=== PATIENT | male | born 1945 | race Caucasian/White ===

== ENCOUNTER → 2016-12-01 | Outpatient (CLI) | payer MEDICARE, MEDICAID | END | disposition home or self-care (01) | LOC: CFH 08:51 | DX: I51.7 Cardiomegaly (principal); J98.11 Atelectasis; K22.9 Disease of esophagus, unspecified; M89.9 Disorder of bone, unspecified | CPT/HCPCS: 71250; 74220 ==

== ENCOUNTER 2017-10-21 10:14 | Day surgery (SDC) | payer MEDICARE, MEDICAID ==
[~2017-10-21] VITALS: Ht 172.7 cm; Wt 95.8 kg
[2017-10-21] MEDS ORDERED: ALPR HOMEMEDPR (10:54)
[2017-10-21] MEDS ORDERED: DIAZ5TAB PO (10:54)
[2017-10-21] MEDS ORDERED: SILD100T PO (10:54)
[2017-10-21] MEDS ORDERED: [UNRECOGNIZED DRUG - CODE] PO (10:54)
[2017-10-21] MEDS ORDERED: TRAM50TA2 PO (10:54)
[2017-10-21 11:03] VITALS: BP 174/100
[2017-10-21 11:28] LABS: MICROSCOPIC NOT IND
[2017-10-21 11:33] LABS: CULTURE INDICATED? NO
[2017-10-21 11:42] LABS: BASOPHILS # (AUTO) 0.03 x10^3/uL (0-0.1); BASOPHILS % (AUTO) 1 % (0-1); EOSINOPHILS # (AUTO) 0.16 x10^3/uL (0-0.4); EOSINOPHILS % (AUTO) 2 % (1-7); LYMPHOCYTES # (AUTO) 2.04 x10^3/uL (1-3.4); LYMPHOCYTES % (AUTO) 29 % (22-44); MD NO; MEAN CORPUSCULAR HEMOGLOBIN 32.6 pg (27.5-34.5); MEAN CORPUSCULAR HGB CONC 34.6 g/dL (33.2-36.2); MEAN CORPUSCULAR VOLUME 94.1 fL (81-97); MEAN PLATELET VOLUME 7.9 fL (7.4-10.4); MONOCYTES # (AUTO) 0.59 x10^3/uL (0.2-0.8); MONOCYTES % (AUTO) 8 % (2-9); NEUTROPHILS # (AUTO) 4.28 x10^3/uL (1.8-6.8); NEUTROPHILS % (AUTO) 60 % (42-75); PLATELET COUNT 172 x10^3/uL (130-400); RED BLOOD COUNT 5.14 x10^6/uL (4.38-5.82); RED CELL DISTRIBUTION WIDTH 12.8 % (9.4-14.8)
[2017-10-21 11:54] LABS: ANION GAP 7 mmol/L (5-15); CALCIUM 8.5 mg/dL (8.5-10.1); CHLORIDE 110 mmol/L (98-107)
[2017-10-21] MEDS ORDERED: ONDANSETRON ODT 8 MG PO ONE (12:00)
[2017-10-21] MEDS ORDERED: GABAPENTIN 300 MG CAPSULE PO ONE (12:00)
[2017-10-21] MEDS ORDERED: ACETAMINOPHEN 500 MG TABLET PO ONE (12:00)
[2017-10-21] MEDS ORDERED: OxyconTIN ER 10 MG TAB.ER PO ONE (12:00)
[2017-10-21] MEDS ORDERED: LACTATED RINGERS 1,000 ML IV SCH (12:13)
[2017-10-21] MEDS ORDERED: FENTANYL PF 250 MCG/5ML ONE (12:37)
[2017-10-21] MEDS ORDERED: MIDAZOLAM 1 MG/ML, 2ML ONE (12:37)
[2017-10-21] MEDS ORDERED: PROPOFOL 10 MG/ML, 20ML ONE (12:39)
[2017-10-21] MEDS ORDERED: LIDOCAINE-MPF 2% ,5ML ONE (12:39)
[2017-10-21] MEDS ORDERED: CEFAZOLIN 1,000 MG ONE ×2 (12:40)
[2017-10-21] MEDS ORDERED: WATER-INJECTION,STERILE 10 ML IV ONE (12:40)
[2017-10-21] MEDS ORDERED: DEXAMETHASONE 4 MG/ML, 1ML ONE ×2 (12:41)
[2017-10-21] MEDS ORDERED: BUPIVACAINE/PF 0.25% ONE ×2 (13:46→14:03)
[2017-10-21] MEDS ORDERED: NEOSPORIN OINT, 15GM ONE (13:47)
[2017-10-21] MEDS ORDERED: NEOSTIGMINE 1 MG/ML, 10ML ONE (13:56)
[2017-10-21] MEDS ORDERED: ROCURONIUM 10 MG/ML,10ML ONE (13:56)
[2017-10-21] MEDS ORDERED: PHENYLEPHRINE 10 MG/ML ONE (13:56)
[2017-10-21] MEDS ORDERED: GLYCOPYRROLATE 0.2MG/1ML, 5ML ONE (13:56)
[2017-10-21] MEDS ORDERED: DIAZEPAM 5 MG TABLET PO ONE (16:00)
[2017-10-21] MEDS ORDERED: OXYcodone 5 MG/5 ML ORAL.SOL UDC PO PRN (17:00)
[2017-10-21] MEDS ORDERED: LABETALOL 5MG/ML, 20ML IV PRN (17:00)
[2017-10-21] MEDS ORDERED: PROMETHAZINE 25 MG/ML, 1ML IV PRN (17:00)
[2017-10-21] MEDS ORDERED: MEPERIDINE/PF 25MG/0.5ML IVPush PRN (17:00)
[2017-10-21] MEDS ORDERED: HALOPERIDOL 5 MG/ML IV PRN (17:00)
[2017-10-21] MEDS ORDERED: hydrALAzine 20 MG/ML, 1ML IV PRN (17:00)
[2017-10-21] MEDS ORDERED: HYDROmorphone 1 MG/ML, 1ML IV PRN (17:00)
[2017-10-21] MEDS ORDERED: FENTANYL PF 100 MCG/2ML IV PRN (17:00)
[2017-10-21] MEDS ORDERED: LORazepam 2 MG/ML, 1ML IVPush PRN (17:00)
[2017-10-22] MEDS ORDERED: DIAZEPAM 5 MG TABLET PO SCH (09:00)
== END 2017-10-21 18:45 | disposition home or self-care (01) ==
LOC: OUT 10:14
PROVIDERS: ATTEND Urology
DX: C67.9 Malignant neoplasm of bladder, unspecified (principal); N47.1 Phimosis; N48.1 Balanitis; F17.210 Nicotine dependence, cigarettes, uncomplicated; E11.9 Type 2 diabetes mellitus without complications; I10 Essential (primary) hypertension; Z98.890 Other specified postprocedural states; Z88.8 Allergy status to other drugs, medicaments and biological substances
CPT/HCPCS: 36415; 52204; 54161; 80048; 81003; 85025; 88307; 93005; J0690; J1100; J2250; J2370; J2704; J2710; J3010; J3490; J7120; Q0162